=== PATIENT | female | born 1965 ===

== ENCOUNTER 2017-08-23 21:36 | Emergency (ER) | payer MEDICAID ==
[2017-08-23 21:36] VITALS: BMI 38.4
[2017-08-23 21:41] VITALS: TEMP 98.1
--- NOTE | 2017-08-23 22:59 | ED PDOC ---
HPI: Headache Time Seen by Provider: 08/23/17 21:40 Chief Complaint (Nursing): Headache Chief Complaint (Provider): Headache History Per: Patient History/Exam Limitations: no limitations Onset/Duration Of Symptoms: Days (x2) Current Symptoms Are (Timing): Still Present Additional Complaint(s): 51 y/o female with a PMHx of hypothyroidism, anxiety, Parkinson's disease, tremors, and uncontrolled diabetes presenting for evaluation of headache x2 days. Patient states she's had a headache which she describes as a burning sensation associated with sweats. Patient states she was seen here last week for the same. Per old records, patient received a CT head 08/15/17 and was seen by Dr. Gr. Patient reports she has an upcoming appointment with a neurologist. PMD: Dr. Vega Past Medical History Reviewed: Historical Data, Nursing Documentation, Vital Signs Vital Signs: Last Vital Signs Temp 98.1 F 08/23/17 21:40 Pulse 104 H 08/23/17 21:40 Resp 16 08/23/17 21:40 BP 144/113 H 08/23/17 21:40 Pulse Ox 99 08/23/17 21:40 - Medical History PMH: Anxiety, Depression, Diabetes, Hypothyroidism, Osteoporosis, Parkinson's Disease Denies: Chronic Kidney Disease - Surgical History Surgical History: Appendectomy, Cholecystectomy, Tonsillectomy - Family History Family History: States: Unknown Family Hx - Social History Current smoker - smoking cessation education provided: Yes Alcohol: None Drugs: Denies - Immunization History Hx Tetanus Toxoid Vaccination: Yes Hx Influenza Vaccination: Yes Hx Pneumococcal Vaccination: No - Home Medications Home Medications: Ambulatory Orders Medication Instructions Recorded Insulin NPH Hum/Reg Insulin Hm 35 unit SC BID 03/06/17 [Humulin 70-30 Vial] DiphenhydrAMINE [Benadryl] 100 mg PO Q8 08/15/17 Levothyroxine [Synthroid] 125 mcg PO SUTUTHSA 08/15/17 Pramipexole Di-HCl [Mirapex] 1.5 mg PO Q8 08/15/17 Sertraline [Zoloft] 50 mg PO HS 08/15/17 - Allergies Allergies/Adverse Reactions: Allergies Allergy/AdvReac Type Severity Reaction Status Date / Time haloperidol [From Haldol] Allergy SWELLING Verified 08/23/17 21:39 Review of Systems ROS Statement: Except As Marked, All Systems Reviewed And Found Negative Constitutional: Positive for: Sweats Neurological: Positive for: Headache Physical Exam - Reviewed Nursing Documentation Reviewed: Yes Vital Signs Reviewed: Yes - Physical Exam Appears: Positive for: Non-toxic, No Acute Distress (anxious) Head Exam: Positive for: ATRAUMATIC, NORMAL INSPECTION, NORMOCEPHALIC Skin: Positive for: Normal Color, Warm, Dry. Negative for: Rash Eye Exam: Positive for: EOMI, Normal appearance, PERRL Neck: Positive for: Normal, Painless ROM, Supple Cardiovascular/Chest: Positive for: Regular Rate, Rhythm. Negative for: Murmur Respiratory: Positive for: Normal Breath Sounds. Negative for: Respiratory Distress Gastrointestinal/Abdominal: Positive for: Normal Exam, Soft. Negative for: Tenderness Back: Positive for: Normal Inspection. Negative for: L CVA Tenderness, R CVA Tenderness, Vertebral Tenderness Extremity: Positive for: Normal ROM. Negative for: Pedal Edema, Deformity Neurologic/Psych: Positive for: Alert, Oriented, Motor/Sensory Deficits (tremors ) - Laboratory Results Result Diagrams: 08/23/17 23:24 08/23/17 23:24 - ECG O2 Sat by Pulse Oximetry: 99 (RA) Pulse Ox Interpretation: Normal Medical Decision Making Medical Decision Makin:07 headache, anxiety, sweats Plan: -CMP -CT Head -CBC -Ativan 0.5mg IVP -Reevaluation CT Head: FINDINGS: Brain: No definite evidence of acute intracranial hemorrhage, infarction, or mass. Ventricles: Normal. No ventriculomegaly. Bones/joints: Normal. No acute fracture. Sinuses: Normal as visualized. No acute sinusitis. Mastoid air cells: Normal as visualized. No mastoid effusion. Soft tissues: Normal. IMPRESSION: No definite evidence of acute intracranial hemorrhage, infarction, or mass. Labs reviewed and showed no clinically significant abnormalities. With a normal CT and labs, provider evaluated that patient is stable and ready for discharge. Patient advised to follow up with primary care doctor and return if symptoms persist or worsen. Provider offered patient crisis evaluation which she denied. Provider spoke to Mickey Gonzales pts pcp, who states that it is all anxiety and that she can outpatient follow up with him. and that pt has outpt workup scheduled. spot washer was used. pt understood and transportation home arranged. Scribe Attestation: Documented by Marc Ruiz, acting as a scribe for Ashly Gonzalez MD. Provider Scribe Attestation: All medical record entries made by the Scribe were at my direction and personally dictated by me. I have reviewed the chart and agree that the record accurately reflects my personal performance of the history, physical exam, medical decision making, and the department course for this patient. I have also personally directed, reviewed, and agree with the discharge instructions and disposition. Disposition - Clinical Impression Clinical Impression: Headache, Anxiety - Patient ED Disposition Is Patient to be Admitted: No - Disposition Disposition: Routine/Home Disposition Time: 06:00 Condition: IMPROVED Additional Instructions: follow up with outpatient MRI and neurology as instructed return to the ED with any worsening or concerning symptoms Instructions: Anxiety, Adult (DC), Headache, Adult (DC) Forms: [employer] (Kazakh)
[2017-08-23 23:27] LABS: BASO # 0.1 K/uL (0.0-0.2); BASO % 0.9 % (0.0-2.0); EOS # 0.1 K/uL (0.0-0.7); EOS % 1.1 % (0.0-4.0); HEMOGLOBIN 14.1 g/dL (12.0-16.0); LYMPH # 3.9 K/uL (1.0-4.3); LYMPH % 38.8 % (20.0-40.0); MEAN CORPUSCULAR HEMOGLOBIN 29.4 pg (27.0-31.0); MEAN CORPUSCULAR HGB CONC 33.8 g/dL (33.0-37.0); MONO # 0.5 K/uL (0.0-0.8); MONO % 5.4 % (0.0-10.0); NEUT # 5.4 K/uL (1.8-7.0); NEUT % 53.8 % (50.0-75.0); NRBC % 0.1 % (0.0-0.0); RBC 4.8 Mil/uL (3.80-5.20); RED CELL DISTRIBUTION WIDTH 13.5 % (11.5-14.5); WHITE BLOOD COUNT 10.1 K/uL (4.8-10.8)
[2017-08-23 23:40] LABS: ALB/GLOB RATIO 1.1 (1.0-2.1); ALBUMIN 4.6 g/dL (3.5-5.0); ALT/SGPT 24 U/L (9-52); AST/SGOT 29 U/L (14-36); BLOOD UREA NITROGEN 24 mg/dl (7-17); CALCIUM 9.9 mg/dL (8.4-10.2); GFR AFRICAN-AMERICAN > 60; GFR NON-AFRICAN AMERICAN > 60
[2017-08-24 07:44] VITALS: BP 110/53; PULSE 86; RESP 19
--- NOTE | 2017-08-24 08:12 | CT ---
PROCEDURE: CT HEAD WITHOUT CONTRAST. HISTORY: headache COMPARISON: 08/15/2017 TECHNIQUE: Axial computed tomography images were obtained through the head/brain without intravenous contrast. Radiation dose: Total exam DLP = 2510.66 mGy-cm. This CT exam was performed using one or more of the following dose reduction techniques: Automated exposure control, adjustment of the mA and/or kV according to patient size, and/or use of iterative reconstruction technique. FINDINGS: HEMORRHAGE: No intracranial hemorrhage. BRAIN: No mass effect or edema. No atrophy or chronic microvascular ischemic changes. VENTRICLES: Unremarkable. No hydrocephalus. CALVARIUM: Unremarkable. PARANASAL SINUSES: Unremarkable as visualized. No significant inflammatory changes. MASTOID AIR CELLS: Unremarkable as visualized. No inflammatory changes. OTHER FINDINGS: None. IMPRESSION: No acute intracranial abnormalities. No significant findings to account for the clinical presentation. No significant interval change compared to the prior examination(s). Concordant results (preliminary interpretation) provided by [employer]. Procedure Completed: 00:19 Preliminary ([facility]) Report: Dictated and Authenticated: 00:48 Final Interpretation: 08:11 August 24, 2017.
[2017-08-27 20:52] VITALS: O2SAT 99
== END 2017-08-24 08:51 | disposition home or self-care (01) ==
LOC: H.ER 21:36
DX: R51 Headache (principal); F41.9 Anxiety disorder, unspecified; E11.9 Type 2 diabetes mellitus without complications; E03.9 Hypothyroidism, unspecified; G20 Parkinson's disease; Z79.4 Long term (current) use of insulin
CPT/HCPCS: 70450; 80053; 82948; 85025; 96374; 99285; J2060

== ENCOUNTER 2017-08-28 01:42 | Observation (INO) | payer MEDICAID ==
[2017-08-28 01:42] VITALS: BMI 38.4
--- NOTE | 2017-08-28 02:44 | ED PDOC ---
HPI: General Adult Time Seen by Provider: 08/28/17 02:41 Chief Complaint (Nursing): Rib Injury Chief Complaint (Provider): SHOULDER INJURY History Per: Patient (51 Y/O FEMALE H/O DIABETES HERE WITH COMPLAINT OF FALL OUT OF BED TODAY AND NOTICE OF RIGHT SHOULDER PAIN AND DIFFICULTY MOVING SINCE. PATIENT HAS H/O TREMORS BUT STATES TREMORS IMPROVED SINCE ARRIVAL TO ER. ) Past Medical History Reviewed: Historical Data, Nursing Documentation, Vital Signs Vital Signs: Last Vital Signs Temp 98.0 F 08/28/17 02:14 Pulse 88 08/28/17 03:01 Resp 18 08/28/17 03:01 BP 136/85 08/28/17 03:07 Pulse Ox 96 08/28/17 03:01 - Medical History PMH: Anxiety, Depression, Diabetes, Hypothyroidism, Osteoporosis, Parkinson's Disease Denies: Chronic Kidney Disease - Surgical History Surgical History: Appendectomy, Cholecystectomy, Tonsillectomy - Family History Family History: States: Unknown Family Hx - Immunization History Hx Tetanus Toxoid Vaccination: Yes Hx Influenza Vaccination: Yes Hx Pneumococcal Vaccination: No - Home Medications Home Medications: Ambulatory Orders Medication Instructions Recorded Insulin NPH Hum/Reg Insulin Hm 35 unit SC BID 03/06/17 [Humulin 70-30 Vial] DiphenhydrAMINE [Benadryl] 100 mg PO Q8 08/15/17 Levothyroxine [Synthroid] 125 mcg PO SUTUTHSA 08/15/17 Pramipexole Di-HCl [Mirapex] 1.5 mg PO Q8 08/15/17 Sertraline [Zoloft] 50 mg PO HS 08/15/17 Naproxen 375 mg PO Q8 PRN #21 tablet 08/28/17 - Allergies Allergies/Adverse Reactions: Allergies Allergy/AdvReac Type Severity Reaction Status Date / Time haloperidol [From Haldol] Allergy SWELLING Verified 08/23/17 21:39 Review of Systems ROS Statement: Except As Marked, All Systems Reviewed And Found Negative Physical Exam - Reviewed Nursing Documentation Reviewed: Yes Vital Signs Reviewed: Yes - Physical Exam Appears: Positive for: Well, Non-toxic, No Acute Distress Head Exam: Positive for: ATRAUMATIC, NORMAL INSPECTION, NORMOCEPHALIC Skin: Positive for: Normal Color, Warm, DRY Eye Exam: Positive for: EOMI, Normal appearance, PERRL ENT: Positive for: Normal ENT Inspection Neck: Positive for: Normal, Painless ROM Cardiovascular/Chest: Positive for: Regular Rate, Rhythm Respiratory: Positive for: CNT, Normal Breath Sounds Gastrointestinal/Abdominal: Positive for: Normal Exam, Soft Back: Positive for: Normal Inspection Extremity: Positive for: Normal ROM, Tenderness (RIGHT LATERAL SHOULDER TENDERNESS) Neurologic/Psych: Positive for: Alert, Oriented - ECG O2 Sat by Pulse Oximetry: 100 - Progress ED Course And Treament: VALIUM 5 MG X 1 DOSE xry of right shoulder: no fx Head CT: no acute intracranial abnormality Disposition - Clinical Impression Clinical Impression: Tremors of nervous system, Contusion of shoulder, right - Patient ED Disposition Is Patient to be Admitted: No - Disposition Disposition: Routine/Home Disposition Time: 04:55 Condition: FAIR Prescriptions: Naproxen 375 mg PO Q8 PRN #21 tablet PRN Reason: Pain, Moderate (4-7) Instructions: Tremor, Contusion (DC), Shoulder Pain (DC)
--- NOTE | 2017-08-28 10:21 | CT ---
PROCEDURE: CT HEAD WITHOUT CONTRAST. HISTORY: TREMORS;FALL COMPARISON: 08/24/2017 TECHNIQUE: Axial computed tomography images were obtained through the head/brain without intravenous contrast. Artifact in the skullbase limits evaluation. Radiation dose: Total exam DLP = 1094.31 mGy-cm. This CT exam was performed using one or more of the following dose reduction techniques: Automated exposure control, adjustment of the mA and/or kV according to patient size, and/or use of iterative reconstruction technique. FINDINGS: HEMORRHAGE: No intracranial hemorrhage. BRAIN: No mass effect or edema. Mild volume loss. VENTRICLES: Unremarkable. No hydrocephalus. CALVARIUM: Unremarkable. PARANASAL SINUSES: Unremarkable as visualized. No significant inflammatory changes. MASTOID AIR CELLS: Unremarkable as visualized. No inflammatory changes. OTHER FINDINGS: None. IMPRESSION: No CT evidence of acute intracranial hemorrhage or acute territorial infarct. Acute infarction may be CT occult within first 24 hours. If a focal deficit persists, consider followup CT or MRI for further evaluation. A graft no significant interval change.
--- NOTE | 2017-08-28 10:25 | RAD ---
PROCEDURE: Radiographs of the Right Shoulder. Limited evaluation a stone suboptimal patient positioning. HISTORY: FALL COMPARISON: No prior. FINDINGS: BONES: No acute fracture or dislocation in this limited evaluation. JOINTS: Normal. Glenohumeral and acromioclavicular joints preserved. Minimal degenerative changes. . SOFT TISSUES: Normal. OTHER FINDINGS: None. IMPRESSION: No acute fracture or dislocation in this limited evaluation. Repeat evaluation can be considered if clinically relevant.
--- NOTE | 2017-08-28 11:48 | ED PDOC ---
HPI: General Adult Time Seen by Provider: 08/28/17 02:41 Chief Complaint (Nursing): Rib Injury History Per: Patient Additional Complaint(s): Pt noted to have generalized shaking upper and lower ext. Had been medicated earlier with benzodiazepines with no improvement. Upon arrival of ambulance transport home pt stated she cannot go home due to shaking. Lives by herself. Discussed with [employer]W CLE[employer]ER Silvia who is her primary caregiver. Has been w/u by neuro as outpt and does not appear to have organic cause of shaking. Will place in obs and obtain psych consult Past Medical History Vital Signs: Last Vital Signs Temp 98.0 F 08/28/17 02:14 Pulse 126 H 08/28/17 10:40 Resp 19 08/28/17 08:40 BP 111/57 L 08/28/17 10:40 Pulse Ox 96 08/28/17 10:40 - Medical History PMH: Anxiety, Depression, Diabetes, Hypothyroidism, Osteoporosis, Parkinson's Disease Denies: Chronic Kidney Disease - Surgical History Surgical History: Appendectomy, Cholecystectomy, Tonsillectomy - Family History Family History: States: Unknown Family Hx - Immunization History Hx Tetanus Toxoid Vaccination: Yes Hx Influenza Vaccination: Yes Hx Pneumococcal Vaccination: No - Home Medications Home Medications: Ambulatory Orders Medication Instructions Recorded Insulin NPH Hum/Reg Insulin Hm 35 unit SC BID 03/06/17 [Humulin 70-30 Vial] DiphenhydrAMINE [Benadryl] 100 mg PO Q8 08/15/17 Levothyroxine [Synthroid] 125 mcg PO SUTUTHSA 08/15/17 Pramipexole Di-HCl [Mirapex] 1.5 mg PO Q8 08/15/17 Sertraline [Zoloft] 50 mg PO HS 08/15/17 Naproxen 375 mg PO Q8 PRN #21 tablet 08/28/17 - Allergies Allergies/Adverse Reactions: Allergies Allergy/AdvReac Type Severity Reaction Status Date / Time haloperidol [From Haldol] Allergy SWELLING Verified 08/23/17 21:39 Review of Systems ROS Statement: Except As Marked, All Systems Reviewed And Found Negative Neurological: Positive for: Other (Shaking temors) Physical Exam - Reviewed Nursing Documentation Reviewed: Yes Vital Signs Reviewed: Yes - Physical Exam Appears: Positive for: Non-toxic, No Acute Distress Head Exam: Positive for: ATRAUMATIC, NORMAL INSPECTION, NORMOCEPHALIC Skin: Positive for: Normal Color, Warm, DRY Eye Exam: Positive for: EOMI, Normal appearance, PERRL ENT: Positive for: Normal ENT Inspection Neck: Positive for: Normal, Painless ROM Cardiovascular/Chest: Positive for: Regular Rate, Rhythm Respiratory: Positive for: CNT, Normal Breath Sounds Gastrointestinal/Abdominal: Positive for: Normal Exam, Soft Back: Positive for: Normal Inspection Extremity: Positive for: Normal ROM Neurologic/Psych: Positive for: Alert, Oriented, Other (Rhythmic shaking upper and lower ext bilat which appear to be able to be controlled by pt. Remains awake and alert during episode) - ECG O2 Sat by Pulse Oximetry: 96 Disposition - Clinical Impression Clinical Impression: Tremors of nervous system, Contusion of shoulder, right - Patient ED Disposition Is Patient to be Admitted: Yes - Disposition Disposition Time: 11:50 Condition: FAIR Prescriptions: Naproxen 375 mg PO Q8 PRN #21 tablet PRN Reason: Pain, Moderate (4-7) Instructions: Tremor, Contusion (DC), Shoulder Pain (DC) - Pt Status Changed To: Hospital Disposition Of: Observation - POA Present On Arrival: None
[2017-08-28 12:58] LABS: ALB/GLOB RATIO 1.1 (1.0-2.1); ALBUMIN 4.8 g/dL (3.5-5.0); ALT/SGPT 123 U/L (9-52); AST/SGOT 50 U/L (14-36); BASO % 0.6 % (0.0-2.0); BLOOD UREA NITROGEN 22 mg/dl (7-17); CALCIUM 9.9 mg/dL (8.4-10.2); EOS # 0.1 K/uL (0.0-0.7); EOS % 1.3 % (0.0-4.0); GFR AFRICAN-AMERICAN > 60; GFR NON-AFRICAN AMERICAN > 60; LYMPH # 1.9 K/uL (1.0-4.3); LYMPH % 27.6 % (20.0-40.0); MEAN CELL VOLUME 90.4 fl (81.0-99.0); MEAN CORPUSCULAR HEMOGLOBIN 29.6 pg (27.0-31.0); MEAN CORPUSCULAR HGB CONC 32.7 g/dL (33.0-37.0); MONO # 0.3 K/uL (0.0-0.8); MONO % 4.8 % (0.0-10.0); NEUT # 4.6 K/uL (1.8-7.0); NEUT % 65.7 % (50.0-75.0); RBC 5.08 Mil/uL (3.80-5.20); RED CELL DISTRIBUTION WIDTH 13.8 % (11.5-14.5); WHITE BLOOD COUNT 7.1 K/uL (4.8-10.8)
--- NOTE | 2017-08-28 13:07 | CP.PCM.CON ---
History of Present Illness - History of Present Illness History of Present Illness: Psychiatry consult note Patient known to health underwriter from previous admission. CC: "I'm anxious" HPI: 51 yo female w/ h/o Parkinson's Disease, DM, Hypothryoidism, presents w/ exacerbation of Parkinsonian symptoms. She has not been compliant with Zoloft or Remeron, recently prescribed by health underwriter. She reports feeling acutely anxious , but denies depression/AH/VH/paranoia/delusions/SI/HI. Her primary complaint is "shaking", pain and anxiety. PPHx: H/o psychiatric admission in 1995 after she accidentally took her brother' s methadone and it made her psychotic. No h/o suicide attempts. +Current outpatient psychiatric treatment, but she does not recall the name of her psychiatrist. PMHx: PD, DM, Hypothryoidism SHx: Denies drugs/etoh/cig use; from [place] ALL: Haldol Impression: 51 yo female w/ generalized anxiety disorder, r/o conversion disorder, does not meet criteria for psychiatric admission at this time. -Restart Remeron 15 mg PO HS, as was prescribed during her previous admission -Patient would benefit from outpatient therapy as her symptoms may exacerbated by a somatoform disorder -Recommend to avoid benzos as the patient may become dependent on these medications -Can give Vistaril 50 mg PO Q8hr PRN anxiety Past Patient History - Infectious Disease Hx of Infectious Diseases: None - Past Medical History & Family History Past Medical History?: Yes - Past Social History Smoking Status: Light Smoker < 10 Cigarettes Daily - CARDIAC Hx Cardiac Disorders: No - PULMONARY Hx Respiratory Disorders: No - NEUROLOGICAL Hx Parkinson's Disease: Yes - HEENT Hx HEENT Problems: No - RENAL Hx Chronic Kidney Disease: No - ENDOCRINE/METABOLIC Hx Hypothyroidism: Yes - HEMATOLOGICAL/ONCOLOGICAL Hx Blood Disorders: No - INTEGUMENTARY Hx Dermatological Problems: No - MUSCULOSKELETAL/RHEUMATOLOGICAL Hx Osteoporosis: Yes - GASTROINTESTINAL Hx Gastrointestinal Disorders: No - GENITOURINARY/GYNECOLOGICAL Hx Genitourinary Disorders: No - PSYCHIATRIC Hx Anxiety: Yes Hx Depression: Yes - SURGICAL HISTORY Hx Appendectomy: Yes Hx Cholecystectomy: Yes Hx Tonsillectomy: Yes - ANESTHESIA Hx Anesthesia: Yes Hx Anesthesia Reactions: No Hx Malignant Hyperthermia: No Meds Home Medications: Home Medication List Medication Instructions Recorded Confirmed Type Naproxen 375 mg PO Q8 PRN #21 tablet 07/09/18 Rx Allergies/Adverse Reactions: Allergies Allergy/AdvReac Type Severity Reaction Status Date / Time haloperidol [From Haldol] Allergy SWELLING Verified 08/23/17 21:39 - Medications Medications: Current Medications Hydroxyzine Pamoate (Vistaril) 50 mg PO STAT STA Stop: 08/28/17 13:01 Results - Vital Signs Recent Vital Signs: Last Vital Signs Temp 98.0 F 08/28/17 02:14 Pulse 126 H 08/28/17 10:40 Resp 19 08/28/17 08:40 BP 111/57 L 08/28/17 10:40 Pulse Ox 96 08/28/17 11:50 - Labs Result Diagrams: 08/28/17 12:27 08/28/17 12:27 Labs: Laboratory Results - last 24 hr 08/28/17 08/28/17 12:27 12:27 WBC 7.1 RBC 5.08 Hgb 15.0 Hct 46.0 MCV 90.4 D MCH 29.6 MCHC 32.7 L RDW 13.8 Plt Count 211 D MPV 9.0 Neut % (Auto) 65.7 Lymph % (Auto) 27.6 [place] % (Auto) 4.8 Eos % (Auto) 1.3 Baso % (Auto) 0.6 Neut # (Auto) 4.6 Lymph # (Auto) 1.9 [place] # (Auto) 0.3 Eos # (Auto) 0.1 Baso # (Auto) 0.0 Sodium 146 Potassium 4.8 Chloride 110 H Carbon Dioxide 23 Anion Gap 18 BUN 22 H Creatinine 0.8 Est GFR ( Amer) > 60 Est GFR (Non-Af Amer) > 60 Random Glucose 186 H Calcium 9.9 Total Bilirubin 1.3 AST 50 H D ALT 123 H D Alkaline Phosphatase 189 H D Total Protein 9.2 H Albumin 4.8 Globulin 4.4 H Albumin/Globulin Ratio 1.1
[2017-08-28] MEDS: Insulin Lispro Mix 75/25 100 units/ml (HumaLog) 10ml SC SCH (17:45)
[2017-08-28] MEDS ORDERED: Glucagon Recombinant 1 mg Inj IM PRN (18:22)
[2017-08-28] MEDS ORDERED: Dextrose 50% SYRINGE Inj (50 ml) IV PRN (18:22)
[2017-08-28] MEDS ORDERED: DiphenhydrAMINE 50 mg/ml Inj IM STA (21:13)
[2017-08-28] MEDS: Insulin Regular 100 units/ml SC SCH (22:53)
[2017-08-29 00:22] VITALS: RESP 18
[2017-08-29] MEDS ORDERED: Levothyroxine 125 MCG TAB PO SCH (06:30)
[2017-08-29] MEDS: Insulin Regular 100 units/ml SC SCH ×2 (06:39→13:46)
--- NOTE | 2017-08-29 08:01 | CP.PCM.HP ---
History of Present Illness - History of Present Illness History of Present Illness: pt admitted for uncontrolled tremors. pt refused to be dc from ER stating that she did not have family at home-brother found to be home and available to help her. no f/,c n/v/d. no new compalints. pt w/o tremors at present. pt has h/o anxiety d/o. pt has Enoch scan planned/scheduled/approved for monday Present on Admission - Present on Admission Any Indicators Present on Admission: Yes History of Uncontrolled Diabetes: Yes Review of Systems - Musculoskeletal Musculoskeletal: As Per HPI, Arthralgias, Myalgias - Neurological Neurological: As Per HPI, Tremor Past Patient History - Infectious Disease Hx of Infectious Diseases: None - Past Medical History & Family History Past Medical History?: Yes - Past Social History Smoking Status: Light Smoker < 10 Cigarettes Daily - CARDIAC Hx Cardiac Disorders: No - PULMONARY Hx Respiratory Disorders: No - NEUROLOGICAL Hx Parkinson's Disease: Yes Other/Comment: Restless Leg Syndrome - HEENT Hx HEENT Problems: No - RENAL Hx Chronic Kidney Disease: No - ENDOCRINE/METABOLIC Hx Diabetes Mellitus Type 2: Yes Hx Hypothyroidism: Yes - HEMATOLOGICAL/ONCOLOGICAL Hx Blood Disorders: No - INTEGUMENTARY Hx Dermatological Problems: No - MUSCULOSKELETAL/RHEUMATOLOGICAL Hx Falls: Yes Hx Osteoporosis: Yes - GASTROINTESTINAL Hx Gastrointestinal Disorders: No - GENITOURINARY/GYNECOLOGICAL Hx Genitourinary Disorders: No - PSYCHIATRIC Hx Anxiety: Yes Hx Depression: Yes Hx Substance Use: No - SURGICAL HISTORY Hx Appendectomy: Yes Hx Cholecystectomy: Yes Hx Tonsillectomy: Yes - ANESTHESIA Hx Anesthesia: Yes Hx Anesthesia Reactions: No Hx Malignant Hyperthermia: No Meds Home Medications: Home Medication List Medication Instructions Recorded Confirmed Type DiphenhydrAMINE [Benadryl] 25 mg PO Q6 #10 cap 08/28/17 Rx Naproxen 375 mg PO Q8 PRN #21 tablet 08/28/17 Rx Allergies/Adverse Reactions: Allergies Allergy/AdvReac Type Severity Reaction Status Date / Time haloperidol [From Haldol] Allergy SWELLING Verified 08/23/17 21:39 Physical Exam - Constitutional Appears: Well, Non-toxic, No Acute Distress - Head Exam Head Exam: ATRAUMATIC, NORMAL INSPECTION, NORMOCEPHALIC - Eye Exam Eye Exam: EOMI, Normal appearance, PERRL Pupil Exam: NORMAL ACCOMODATION, PERRL - ENT Exam ENT Exam: Mucous Membranes Moist, Normal Exam - Neck Exam Neck exam: Positive for: Normal Inspection - Respiratory Exam Respiratory Exam: Clear to Auscultation Bilateral, NORMAL BREATHING PATTERN - Cardiovascular Exam Cardiovascular Exam: REGULAR RHYTHM, RRR, +S1, +S2 - GI/Abdominal Exam GI & Abdominal Exam: Normal Bowel Sounds, Soft. absent: Tenderness - Extremities Exam Extremities exam: Positive for: full ROM, normal capillary refill, normal inspection, pedal pulses present - Back Exam Back exam: NORMAL INSPECTION - Neurological Exam Neurological exam: Alert, CN II-XII Intact, Normal Gait, Oriented x3, Reflexes Normal - Psychiatric Exam Psychiatric exam: Normal Affect, Normal Mood - Skin Skin Exam: Dry, Intact, Normal Color, Warm Results - Vital Signs Recent Vital Signs: Last Vital Signs Temp 97.4 F L 08/29/17 05:21 Pulse 78 08/29/17 05:21 Resp 18 08/29/17 05:21 BP 145/81 08/29/17 05:21 Pulse Ox 95 08/29/17 05:21 - Labs Result Diagrams: 08/28/17 12:27 08/28/17 12:27 Labs: Laboratory Results - last 24 hr 08/28/17 08/28/17 08/28/17 12:27 12:27 17:42 WBC 7.1 RBC 5.08 Hgb 15.0 Hct 46.0 MCV 90.4 D MCH 29.6 MCHC 32.7 L RDW 13.8 Plt Count 211 D MPV 9.0 Neut % (Auto) 65.7 Lymph % (Auto) 27.6 [place] % (Auto) 4.8 Eos % (Auto) 1.3 Baso % (Auto) 0.6 Neut # (Auto) 4.6 Lymph # (Auto) 1.9 [place] # (Auto) 0.3 Eos # (Auto) 0.1 Baso # (Auto) 0.0 Sodium 146 Potassium 4.8 Chloride 110 H Carbon Dioxide 23 Anion Gap 18 BUN 22 H Creatinine 0.8 Est GFR ( Amer) > 60 Est GFR (Non-Af Amer) > 60 POC Glucose (mg/dL) 186 H Random Glucose 186 H Calcium 9.9 Total Bilirubin 1.3 AST 50 H D ALT 123 H D Alkaline Phosphatase 189 H D Total Protein 9.2 H Albumin 4.8 Globulin 4.4 H Albumin/Globulin Ratio 1.1 08/28/17 08/29/17 22:30 05:14 WBC RBC Hgb Hct MCV MCH MCHC RDW Plt Count MPV Neut % (Auto) Lymph % (Auto) [place] % (Auto) Eos % (Auto) Baso % (Auto) Neut # (Auto) Lymph # (Auto) [place] # (Auto) Eos # (Auto) Baso # (Auto) Sodium Potassium Chloride Carbon Dioxide Anion Gap BUN Creatinine Est GFR ( Amer) Est GFR (Non-Af Amer) POC Glucose (mg/dL) 203 H 260 H Random Glucose Calcium Total Bilirubin AST ALT Alkaline Phosphatase Total Protein Albumin Globulin Albumin/Globulin Ratio Assessment & Plan (1) Tremors of nervous system Assessment and Plan: cont home meds neuro no benzos, vistaril for anxiety/tremors Status: Acute (2) DVT prophylaxis Assessment and Plan: scd and ae hose Status: Acute (3) Uncontrolled diabetes mellitus Assessment and Plan: home meds, riss, fsbg, diet control Status: Acute Decision To Admit - Pt Status Changed To: Hospital Disposition Of: Observation - . Bed Request Type: Telemetry Admitting Physician: Baudilio Mason
[2017-08-29] MEDS: Insulin Lispro Mix 75/25 100 units/ml (HumaLog) 10ml SC SCH (08:50)
--- NOTE | 2017-08-29 16:29 | CP.PCM.CON ---
History of Present Illness - History of Present Illness History of Present Illness: 51 yr old woman with pmh of parkinsons at a young age, diagnosed previously by neurologist as a teen, presents with uncontrolled dystonia and resting tremors as well as myoclonic jerks. Miss Mir Onofre is well known to our hospital and has had multiple admissions for similar complaints in the past. She is also followed by the psychiatry and was prescribed zoloft and remeron, with which she was not compliant. She is originally from [place], where she was not given her appropriate dosage of medications. Denies any deep brain stimulation or evaluation. Denies headache, nausea, vomiting, diarrhea, weakness, or aphasia. PMH: Hyperthyroidism, DM. PSH: none FH/SH: as per chart All: nkda. on exam: AAOX3. PERRL. CN 2-12 normal. +cogwheel rigidity left more than right. strength is normal. Mentation is normal. She has rhythmic jerks that are associated with resting tremor bilaterally, high amplitude. +2 dtr ul and ll bl. Past Patient History - Infectious Disease Hx of Infectious Diseases: None - Past Medical History & Family History Past Medical History?: Yes - Past Social History Smoking Status: Light Smoker < 10 Cigarettes Daily - CARDIAC Hx Cardiac Disorders: No - PULMONARY Hx Respiratory Disorders: No - NEUROLOGICAL Hx Parkinson's Disease: Yes Other/Comment: Restless Leg Syndrome - HEENT Hx HEENT Problems: No - RENAL Hx Chronic Kidney Disease: No - ENDOCRINE/METABOLIC Hx Diabetes Mellitus Type 2: Yes Hx Hypothyroidism: Yes - HEMATOLOGICAL/ONCOLOGICAL Hx Blood Disorders: No - INTEGUMENTARY Hx Dermatological Problems: No - MUSCULOSKELETAL/RHEUMATOLOGICAL Hx Falls: Yes Hx Osteoporosis: Yes - GASTROINTESTINAL Hx Gastrointestinal Disorders: No - GENITOURINARY/GYNECOLOGICAL Hx Genitourinary Disorders: No - PSYCHIATRIC Hx Anxiety: Yes Hx Depression: Yes Hx Substance Use: No - SURGICAL HISTORY Hx Appendectomy: Yes Hx Cholecystectomy: Yes Hx Tonsillectomy: Yes - ANESTHESIA Hx Anesthesia: Yes Hx Anesthesia Reactions: No Hx Malignant Hyperthermia: No Meds Home Medications: Home Medication List Medication Instructions Recorded Confirmed Type DiphenhydrAMINE [Benadryl] 25 mg PO Q6 #10 cap 08/28/17 Rx Naproxen 375 mg PO Q8 PRN #21 tablet 08/28/17 Rx hydrOXYzine Pamoate [Vistaril] 50 mg PO Q8 PRN #30 cap 08/29/17 Rx Allergies/Adverse Reactions: Allergies Allergy/AdvReac Type Severity Reaction Status Date / Time haloperidol [From Haldol] Allergy SWELLING Verified 08/23/17 21:39 - Medications Medications: Current Medications Dextrose (Dextrose 50% Inj) 0 ml IV STAT PRN; Protocol PRN Reason: Hypoglycemia Protocol Dextrose (Glutose 15) 0 gm PO ONCE PRN; Protocol PRN Reason: Hypoglycemia Protocol Glucagon (Glucagen Diagnostic Kit) 0 mg IM STAT PRN; Protocol PRN Reason: Hypoglycemia Protocol Hydroxyzine Pamoate (Vistaril) 50 mg PO Q8 PRN PRN Reason: tremor/anxiety Last Admin: 08/29/17 15:50 Dose: 50 mg Insulin Human Regular (Humulin R) 0 units SC [facility] PRN Reason: Protocol Last Admin: 08/29/17 13:46 Dose: Not Given Insulin Lispro Protam/Lispro Human (Humalog Mix 75/25) 35 units SC BID [facility] Last Admin: 08/29/17 08:50 Dose: 35 units Levothyroxine Sodium (Synthroid) 125 mcg PO SuTuThSa@0630 [facility] Last Admin: 08/29/17 06:39 Dose: 125 mcg Mirtazapine (Remeron 15mg Odt) 15 mg PO [facility] Last Admin: 08/28/17 22:24 Dose: 15 mg Pramipexole Dihydrochloride (Mirapex) 1.5 mg PO Q8 [facility] Last Admin: 08/29/17 08:52 Dose: 1.5 mg Sertraline HCl (Zoloft) 50 mg PO [facility] Last Admin: 08/28/17 22:24 Dose: 50 mg Results - Vital Signs Recent Vital Signs: Last Vital Signs Temp 98.6 F 08/29/17 12:00 Pulse 99 H 08/29/17 12:00 Resp 18 08/29/17 12:00 BP 118/67 08/29/17 12:00 Pulse Ox 98 08/29/17 12:00 - Labs Result Diagrams: 08/28/17 12:27 08/28/17 12:27 Labs: Laboratory Results - last 24 hr 08/28/17 08/28/17 08/29/17 17:42 22:30 05:14 POC Glucose (mg/dL) 186 H 203 H 260 H 08/29/17 10:39 POC Glucose (mg/dL) 164 H Assessment & Plan - Assessment and Plan (Free Text) Assessment: 51 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 She says that she responds well to benzodiazepines, but this is contraindicated with her psychiatry medications. I believe she will benefit from an evaluation from Chio Orta who is a deep brain stimulation expert at [facility] and a movement disorder specialist.
[2017-08-29 16:35] VITALS: BP 121/69; PULSE 86; TEMP 98.1; O2SAT 96
--- NOTE | 2017-08-29 16:40 | CP.PCM.DIS ---
Provider - Provider Date of Admission: 08/28/17 18:24 Attending physician: Baudilio Mason MD Time Spent in preparation of Discharge (in minutes): 15 Diagnosis - Discharge Diagnosis (1) Tremors of nervous system Status: Acute (2) DVT prophylaxis Status: Acute (3) Uncontrolled diabetes mellitus Status: Acute Hospital Course - Lab Results Lab Results: Most Recent Lab Values WBC 7.1 K/uL (4.8-10.8) 08/28/17 12:27 RBC 5.08 Mil/uL (3.80-5.20) 08/28/17 12:27 Hgb 15.0 g/dL (12.0-16.0) 08/28/17 12:27 Hct 46.0 % (34.0-47.0) 08/28/17 12:27 MCV 90.4 fl (81.0-99.0) D 08/28/17 12:27 MCH 29.6 pg (27.0-31.0) 08/28/17 12:27 MCHC 32.7 g/dL (33.0-37.0) L 08/28/17 12:27 RDW 13.8 % (11.5-14.5) 08/28/17 12:27 Plt Count 211 K/uL (130-400) D 08/28/17 12:27 MPV 9.0 fl (7.2-11.7) 08/28/17 12:27 Neut % (Auto) 65.7 % (50.0-75.0) 08/28/17 12:27 Lymph % (Auto) 27.6 % (20.0-40.0) 08/28/17 12:27 [place] % (Auto) 4.8 % (0.0-10.0) 08/28/17 12:27 Eos % (Auto) 1.3 % (0.0-4.0) 08/28/17 12:27 Baso % (Auto) 0.6 % (0.0-2.0) 08/28/17 12:27 Neut # (Auto) 4.6 K/uL (1.8-7.0) 08/28/17 12:27 Lymph # (Auto) 1.9 K/uL (1.0-4.3) 08/28/17 12:27 [place] # (Auto) 0.3 K/uL (0.0-0.8) 08/28/17 12:27 Eos # (Auto) 0.1 K/uL (0.0-0.7) 08/28/17 12:27 Baso # (Auto) 0.0 K/uL (0.0-0.2) 08/28/17 12:27 Sodium 146 mmol/l (132-148) 08/28/17 12:27 Potassium 4.8 MMOL/L (3.6-5.0) 08/28/17 12:27 Chloride 110 mmol/L (98-107) H 08/28/17 12:27 Carbon Dioxide 23 mmol/L (22-30) 08/28/17 12:27 Anion Gap 18 (10-20) 08/28/17 12:27 BUN 22 mg/dl (7-17) H 08/28/17 12:27 Creatinine 0.8 mg/dl (0.7-1.2) 08/28/17 12:27 Est GFR ( Amer) > 60 08/28/17 12:27 Est GFR (Non-Af Amer) > 60 08/28/17 12:27 POC Glucose (mg/dL) 164 mg/dL (65-110) H 08/29/17 10:39 Random Glucose 186 mg/dL (65-105) H 08/28/17 12:27 Calcium 9.9 mg/dL (8.4-10.2) 08/28/17 12:27 Total Bilirubin 1.3 mg/dl (0.2-1.3) 08/28/17 12:27 AST 50 U/L (14-36) H D 08/28/17 12:27 ALT 123 U/L (9-52) H D 08/28/17 12:27 Alkaline Phosphatase 189 U/L (38-126) H D 08/28/17 12:27 Total Protein 9.2 G/DL (6.3-8.2) H 08/28/17 12:27 Albumin 4.8 g/dL (3.5-5.0) 08/28/17 12:27 Globulin 4.4 gm/dL (2.2-3.9) H 08/28/17 12:27 Albumin/Globulin Ratio 1.1 (1.0-2.1) 08/28/17 12:27 - Hospital Course Hospital Course: pt, neuro monitor vistaril psych Discharge Exam - Head Exam Head Exam: ATRAUMATIC, NORMAL INSPECTION, NORMOCEPHALIC Discharge Plan - Discharge Medications Prescriptions: DiphenhydrAMINE [Benadryl] 25 mg PO Q6 #10 cap hydrOXYzine Pamoate [Vistaril] 50 mg PO Q8 PRN #30 cap PRN Reason: tremor/anxiety Naproxen 375 mg PO Q8 PRN #21 tablet PRN Reason: Pain, Moderate (4-7) - Follow Up Plan Condition: FAIR Disposition: HOME/ ROUTINE Instructions: Tremor, Contusion (DC), Shoulder Pain (DC) Additional Instructions: follow up with [facility] on call for appointment time. return to emergency room if needeed. follow up with neurology dr hill. [phone] for instructions for follow up. final dx-tremors, parkinsons outpt datscan, pt, neuro, psych, [facility] neuro and psych will have pt f/u
== END 2017-08-29 16:35 | disposition home or self-care (01) ==
LOC: H.ER 01:42 → H.ERHOLD 18:24 → INTOOBSV 18:24 → H.TEL 23:55
PROVIDERS: ADMIT Family Medicine; ATTEND Family Medicine
DX: G20 Parkinson's disease (principal); E03.9 Hypothyroidism, unspecified; E11.65 Type 2 diabetes mellitus with hyperglycemia; F41.1 Generalized anxiety disorder; G25.81 Restless legs syndrome; M81.0 Age-related osteoporosis without current pathological fracture; S40.011A Contusion of right shoulder, initial encounter; Z91.14 Patient's other noncompliance with medication regimen; F32.9 Major depressive disorder, single episode, unspecified; F17.210 Nicotine dependence, cigarettes, uncomplicated; W06.XXXA Fall from bed, initial encounter; Y92.009 Unspecified place in unspecified non-institutional (private) residence as the place of occurrence of the external cause
CPT/HCPCS: 70450; 73030; 80053; 82948; 85025; 96372; 97162; 97167; 97530; 97535; 99285; G0378; G8978; G8979; G8987; G8988; J1200; J2060; Q0177

== ENCOUNTER 2017-08-29 22:36 | Emergency (ER) | payer MEDICAID ==
[2017-08-29 22:36] VITALS: BMI 38.4
[2017-08-29 22:40] VITALS: RESP 16; TEMP 98.3; O2SAT 98
--- NOTE | 2017-08-30 00:51 | ED PDOC ---
HPI: General Adult Time Seen by Provider: 08/29/17 23:27 Chief Complaint (Nursing): Pain, Chronic Chief Complaint (Provider): body tremors History Per: Patient, Family (brother) Additional Complaint(s): 51 y/o female brought in by EMS for evaluation of ongoing body tremors. Brother at bedside, states patient has had multiple hospital visits/admissions in the last week for same, was just discharged tonight around 18:00 and was still with tremors when she got home. Patient states she is taking multiple medications for tremors but states when they get this bad usually Ativan is the only thing that helps. Denies fever, headache, dizziness, nausea/vomiting , chest pain, shortness of breath. Past Medical History Reviewed: Historical Data, Nursing Documentation, Vital Signs Vital Signs: Last Vital Signs Temp 98.3 F 08/29/17 22:38 Pulse 82 08/30/17 00:54 Resp 16 08/29/17 22:38 BP 125/71 08/30/17 00:54 Pulse Ox 98 08/30/17 00:58 - Medical History PMH: Anxiety, Depression, Diabetes, Hypothyroidism, Osteoporosis, Parkinson's Disease Denies: Hepatitis, HIV, HTN, Chronic Kidney Disease, Sexually Transmitted Disease - Surgical History Surgical History: Appendectomy, Cholecystectomy, Tonsillectomy - Family History Family History: States: Unknown Family Hx - Immunization History Hx Tetanus Toxoid Vaccination: Yes Hx Influenza Vaccination: Yes Hx Pneumococcal Vaccination: No - Home Medications Home Medications: Ambulatory Orders Medication Instructions Recorded Insulin NPH Hum/Reg Insulin Hm 35 unit SC BID 03/06/17 [Humulin 70-30 Vial] DiphenhydrAMINE [Benadryl] 100 mg PO Q8 08/15/17 Levothyroxine [Synthroid] 125 mcg PO SUTUTHSA 08/15/17 Pramipexole Di-HCl [Mirapex] 1.5 mg PO Q8 08/15/17 Sertraline [Zoloft] 50 mg PO HS 08/15/17 DiphenhydrAMINE [Benadryl] 25 mg PO Q6 #10 cap 08/28/17 Naproxen 375 mg PO Q8 PRN #21 tablet 08/28/17 hydrOXYzine Pamoate [Vistaril] 50 mg PO Q8 PRN #30 cap 08/29/17 - Allergies Allergies/Adverse Reactions: Allergies Allergy/AdvReac Type Severity Reaction Status Date / Time haloperidol [From Haldol] Allergy SWELLING Verified 08/23/17 21:39 Review of Systems ROS Statement: Except As Marked, All Systems Reviewed And Found Negative Neurological: Positive for: Other (tremors) Physical Exam - Reviewed Nursing Documentation Reviewed: Yes Vital Signs Reviewed: Yes - Physical Exam Appears: Positive for: Well, Non-toxic, Uncomfortable (tremulous, diaphoretic) Head Exam: Positive for: ATRAUMATIC, NORMAL INSPECTION, NORMOCEPHALIC Skin: Positive for: Normal Color Eye Exam: Positive for: Normal appearance ENT: Positive for: Normal ENT Inspection Cardiovascular/Chest: Positive for: Regular Rate, Rhythm Respiratory: Positive for: Normal Breath Sounds Gastrointestinal/Abdominal: Positive for: Normal Exam Back: Positive for: Normal Inspection Extremity: Positive for: Normal ROM Neurologic/Psych: Positive for: Alert, Oriented - ECG O2 Sat by Pulse Oximetry: 98 - Progress ED Course And Treament: Case was discussed with Mickey Vega PBX REPAIRER, who is very familiar with patient; states she had neurology and PT consults within the last 12 hours and that there is no indication for admission at this time. Patient is being worked up as an outpatient for symptoms. Patient has office appt and appt for Neurological testing at [facility] and also has appt set up to see a Neurologist. Recommends discharge and follow up as scheduled. Patient and brother educated on findings and plan by Dr. Roy; will give Ativan IM dose and d/c with instructions to follow up as scheduled. On re-eval, patient resting comfortably; tremors improved. Patient requires no further intervention in the ED and is stable for discharge at this time Patient was advised to continue current medications Follow up as scheduled Return precautions given Disposition - Clinical Impression Clinical Impression: Tremors of nervous system - Patient ED Disposition Is Patient to be Admitted: No Counseled Patient/Family Regarding: Diagnosis, Need For Followup - Disposition Referrals: Mickey Vega, VANESSA, JOINERY MACHINIST [Advanced Practice Nurse] - Disposition: Routine/Home Disposition Time: 00:50 Condition: STABLE Instructions: Tremor Forms: [employer] (Swedish)
[2017-08-30 00:54] VITALS: BP 125/71; PULSE 82
== END 2017-08-30 00:50 | disposition home or self-care (01) ==
LOC: H.ER 22:36
DX: R25.1 Tremor, unspecified (principal); G20 Parkinson's disease; E11.9 Type 2 diabetes mellitus without complications; Z79.4 Long term (current) use of insulin; E03.9 Hypothyroidism, unspecified; M81.0 Age-related osteoporosis without current pathological fracture; Z86.59 Personal history of other mental and behavioral disorders
CPT/HCPCS: 96372; 99282; J2060